=== PATIENT | female | born 1945 | race Caucasian/White ===

== ENCOUNTER 2020-01-13 01:08 | Outpatient (CLI) | payer MEDICARE, SELFPAY ==
[2020-01-13 18:21] LABS: SARS-CoV-2 RNA PCR Negative
== END 2020-01-13 01:09 | disposition home or self-care (01) ==
LOC: ANHCOVIDDT 01:08
PROVIDERS: PCP Family Medicine; Visit Provider Obstetrics & Gynecology
DX: Z01.818 Encounter for other preprocedural examination (principal); Z20.828 Contact with and (suspected) exposure to other viral communicable diseases
CPT/HCPCS: 87635; C9803; U0003

== ENCOUNTER 2020-01-13 08:15 | Outpatient (CLI) | payer MEDICARE, SELFPAY ==
[2020-01-13 08:37] LABS: Hematocrit 40.4 % (37.0-47.0); Hemoglobin 12.8 g/dL (12.0-15.0)
[2020-01-13 08:56] LABS: Anion Gap 12 mmol/L (8-16); Blood Urea Nitrogen 17 mg/dL (7-17); Carbon Dioxide 30 mmol/L (22-30); Chloride 99 mmol/L (98-107); Estimated Glomerular Filt Rate > 60; Glucose 180 mg/dL (65-105); Potassium 3.9 mmol/L (3.4-5.0); Sodium 141 mmol/L (137-145)
--- NOTE | 2020-01-13 10:00 | ECG_ITS ---
Measurements Intervals [place] Rate: 88 P: 25 WV: 181 QRS: 1 QRSD: 98 T: 64 QT: 370 QTc: 449 Interpretive Statements SINUS RHYTHM WITH SINUS ARRHYTHMIA ATRIAL PREMATURE COMPLEX BORDERLINE AV CONDUCTION DELAY INCOMPLETE RIGHT BUNDLE BRANCH BLOCK BASELINE ARTIFACT- I, II, III, AVR, AVL, AVF BORDERLINE ECG Electronically Signed On 01-13-2020 8:39:00 CLERICAL ADMINISTRATOR by Cristian Christianson D.O.
== END 2020-01-13 08:16 | disposition home or self-care (01) ==
LOC: ANHSURGERY 08:16
PROVIDERS: Anesthesiology; PCP Family Medicine; Visit Provider Obstetrics & Gynecology
DX: N85.8 Other specified noninflammatory disorders of uterus (principal); I10 Essential (primary) hypertension; E11.9 Type 2 diabetes mellitus without complications; Z01.818 Encounter for other preprocedural examination
CPT/HCPCS: 36415; 80048; 85014; 85018; 87635; 93005; C9803; U0003

== ENCOUNTER 2020-01-14 01:22 | Day surgery (SDC) | payer MEDICARE, SELFPAY ==
--- NOTE | 2020-01-12 11:24 | P.HP_ITS ---
H&P: HPI History of Present Illness Date/Time: 01/12/20 11:24 Chief complaint: post menopausal bleeding, uterine mass Narrative: Mylene Steele is a 74 year old female admitted for hysteroscopy has a history breast cancer and had elevated after assuring levels. Ultrasound was performed ovaries were not seen but there was 6.2cm area of fluid collecting in the uterus. She denies reviewed. She is admitted for hysteroscopy dilatation curettage risks Review of Systems Review of Systems: All systems reviewed & are unremarkable except as noted in HPI and below Exam Const: General: no acute distress Eyes: General: appearance normal, both eyes and all related structures Neck: Neck: supple and no JVD Thyroid: thyroid normal Resp: Effort & Inspection: normal respiratory effort Auscultation: clear to auscultation bilaterally Cardio: Rate: regular rate Rhythm: regular rhythm GI: Inspection: non-distended GI Palp: Yes Soft to palpation, No Tenderness to palpation present (GI) and No Guarding due to palpation present (GI) Auscultation: normal bowel sounds : General: Yes bladder normal to palpation External Female Exam: normal external appearance Speculum Exam - Vagina: normal vaginal discharge and No vaginal bleeding Speculum Exam - Cervix: nontender Bimanual exam- vagina & uterus: bladder normal to palpation and No Cervical tenderness present OB/ex ternal & speculum: No vaginal bleeding Skin: General skin exam: no rashes or lesions noted Extrem: General: normal to inspection and no edema Psych: Mental Status: mental status grossly normal Affect: normal affect Assessment and Plan Additional Plan impression: Thickened endometrium postmenopausal female Plan: Hysteroscopy dilatation and curettage
[2020-01-12 11:42] VITALS: BMI 40.5
--- NOTE | 2020-01-14 07:50 | WPDHPUPDATE1 ---
History and Physical Update Update Date/Time: 01/14/20 07:50 History and Physical has been reviewed, including an updated exam of the patient. There are NO changes in the patient's condition. Risks, benefits, and alternatives have been discussed and questions answered. Patient agrees to proceed with procedure.
[2020-01-14 12:06] VITALS: BP 128/71; PULSE 80; RESP 16; TEMP 36.9; O2SAT 98
[2020-01-14] MEDS: LACTATED RINGERS 1,000 ML 30 ML IV CONT (12:35)
[2020-01-14 12:45] LABS: Glucose Point of Care 123 (65-105)
[2020-01-14] MEDS: ACETAMINOPHEN 500 MG TABLET 1000 MG PO (12:46)
--- NOTE | 2020-01-14 13:00 | WPDANESEPPF ---
Anes - Initial Pre Proc Eval Procedure: Operation Date: 01/14/20 14:00 Proposed Procedures p Hysteroscopy, Dilation and Curettage - Brian Lentz MD Date/Time: 01/14/20 13:00 Surgeon: Brian Lentz MD Pre Op Diagnosis: post menopausal bleeding, uterine mass Patient Data Age: 74 Gender: F Height: 5 ft 6 in Weight: 114 kg Allergies Allergy/AdvReac Type Severity Reaction Status Date / Time No Known Allergies Allergy Verified 01/14/20 12:11 Home Medications Medication Instructions Recorded Confirmed Type amlodipine 5 mg PO QAM 01/12/20 01/14/20 History clobetasol 1 applic TOPICAL BID PRN 01/12/20 01/14/20 History fexofenadine-pseudoephedrine 1 tablet PO QAM PRN 01/12/20 01/14/20 History [[place]-D 24 Hour] ibuprofen [Excedrin IB] 400 mg PO Q6H PRN 01/12/20 01/14/20 History losartan 100 mg PO QAM 01/12/20 01/14/20 History metformin 500 mg PO BID 01/12/20 01/14/20 History metoprolol succinate 25 mg PO QAM 01/12/20 01/14/20 History spironolactone 25 mg PO QAM 01/12/20 01/14/20 History trazodone 100 mg PO HS 01/12/20 01/14/20 History hydrocodone-acetaminophen [[place]] 1 tablet PO Q4H PRN #20 tablet 01/14/20 Rx Laboratory Tests 01/14/20 12:43 POC Capillary Glucose 123 mg/dl H mg/dl (65-105) Patient hx anesthesia problems: none Family hx anesthesia problems: none [facility] Past Medical History Medical History (Updated 01/14/20 @ 13:00 by Brian Guillory MD) HTN (hypertension) Morbid obesity SRIDHAR (obstructive sleep apnea) Social History Social History Smoking packs per day: 0.5 Smoking cigarettes per day: 10.0 Years smoked: 20 Smoking pack-years: 10.00 Smoking status: Former smoker Smoking end date: 08/12/79 Alcohol intake: current Drinks per week: 12 Substance use: never Living arrangements: with family Additional living arrangements comments: [facility] Spiritual care concerns: No Anes - Eval Final PreProcedure Day of Procedure 12/03/20 13:00 Patient weight: morbidly obese Heart: regular rate and rhythm Lungs: clear to auscultation Airway: Mallampati scale class II Neurological: alert and oriented Last oral intake: >/= 8 hours ASA classification: III Emergent: no Anesthetic plan: proceed Anesthesia type and monitoring: general GIVS and standard monitoring Informed Consent: The patient's anesthetic plan of GIVS was discussed at length because of her belief she requires more anesthetic than normal . The details of GIVS with spontaneous breathing Vs. LMA or ETT were discussed in detail and its attendant risks and benefits were discussed with the patient/family/POA. Several questions were solicited and answers provided to the satisfaction of the patient. She agrees to proceed.
--- NOTE | 2020-01-14 14:30 | PM.PROC ---
Procedure Note - Detailed Date of procedure: 01/14/20 Pre-op diagnosis: post menopausal bleeding, uterine mass Surgeon: Brian Lentz MD Postop diagnosis: Postmenopausal bleeding Procedure: Hysteroscopy/dilatation and curettage EBL: 5cc Anesthesia: L M A Findings: Uterus sounded to 8cm with very benign atrophic appearing endometrium Complications: None Description of procedure: The patient was prepped and draped in the normal sterile fashion and placed in the dorsal lithotomy position. Under excellent LMA anesthesia weighted speculum placed in posterior fornix of vagina. The anterior lip of the cervix grasped with a single-tooth tenaculum. The uterus sounded to 8cm serial dilatation with fragmented dilators performed. This was followed by passage of the 5mm visualizing hysteroscope using normal saline as visualizing medium. Very benign noncancerous atrophic endometrium was seen with each fallopian tube os seen. Photo documentation was undertaken. The uterus was scraped over the entire 360? removing very minimal to no tissue was expected for a woman this age. The instruments were then removed. All sponge, needle, instrument counts were correct. There were no immediate complications
[2020-01-14 14:35] VITALS: BP 135/65; PULSE 88; RESP 16; O2SAT 98
[2020-01-14 15:05] VITALS: BP 137/59; PULSE 63; RESP 16; O2SAT 98
== END 2020-01-14 15:29 | disposition home or self-care (01) ==
PROVIDERS: PCP Family Medicine; Visit Provider Obstetrics & Gynecology
PROC: 0U5B8ZZ Destruction of Endometrium, Via Natural or Artificial Opening Endoscopic (ICD-10-PCS; CPT 58563; principal; 2020-01-14 14:00)
DX: N95.0 Postmenopausal bleeding (principal); N85.8 Other specified noninflammatory disorders of uterus; Z85.3 Personal history of malignant neoplasm of breast; I10 Essential (primary) hypertension; G47.33 Obstructive sleep apnea (adult) (pediatric); E66.01 Morbid (severe) obesity due to excess calories; Z68.39 Body mass index [BMI] 39.0-39.9, adult; Z87.891 Personal history of nicotine dependence
CPT/HCPCS: 58558; 88305; A9270; J2250; J2405; J2704; J3010; J7030; J7120